=== PATIENT | female | born 1940 | race Caucasian/White ===

== ENCOUNTER 2016-10-01 10:10 | Emergency (ER) | payer MEDICARE ==
[~2016-10-01] VITALS: Ht 172.7 cm; Wt 72.7 kg
[~2016-10-01 10:10] MED LIST: BECL8.7A6 IH; COMBIVENTA INH; ERGO400C PO; ESTR0.5T PO; HYDR-656 PO; MONT10TA23 PO; RAMI2.5C PO; TRIA1TAB2 PO; glucosamine
[2016-10-01 10:24] VITALS: BP 140/63; PULSE 84; RESP 18; O2SAT 100
--- NOTE | 2016-10-01 10:30 | ED.REPORT ---
HPI-Trauma Minor / Fall Date of Service Oct 01, 2016 ED Provider: Ji Moon MD The patient is a 76 year old female who was brought to the emergency department by EMS for right hip/leg pain that began earlier this morning. The patient fell off of a 2 foot high stool and twisted her right leg, causing pain to her right hip and upper thigh. She has been able to ambulate since onset. She denies any other injuries or trauma. She did not hit her head or lose consciousness. She denies neck pain, chest pain, abdominal pain or back pain. She has not had similar symptoms in the past. Nursing Notes Stated Complaint: LEFT HIP/LEG PAIN,GROUND LEVEL FALL Chief Complaint: Multiple Trauma/Fall Nursing Notes Reviewed: Yes Allergies: Coded Allergies: NSAIDS (Non-Steroidal Anti-Inflamma (Verified Allergy, Severe, Anaphylaxis , 10/01/16) oxycodone (Verified Allergy, Intermediate, Itching, 10/01/16) Sulfa (Sulfonamide Antibiotics) (Verified Allergy, Unknown, 10/01/16) aspirin (Verified Allergy, Unknown, 10/01/16) ibuprofen (Verified Allergy, Unknown, 10/01/16) Scheduled ([glucosamine]) DAILY Beclomethasone Dipropionate (Qvar) 8.7 Gm Aer.w.adap 8.7 GM IH BID Cholecalciferol (Vitamin D3) (Vitamin D) 400 Unit Capsule 400 UNIT PO BID Estradiol (Estradiol) 0.5 Mg Tablet 0.5 MG PO 2D Montelukast (Montelukast) 10 Mg Tablet 10 MG PO HS Ramipril (Ramipril) 2.5 Mg Capsule 2.5 MG PO DAILY Triamterene/Hydrochlorothiazid (Maxzide 37.5 mg-25 mg Tablet) 1 Each Tablet 1 TAB PO AM Triamterene/Hydrochlorothiazid (Maxzide 37.5 mg-25 mg Tablet) 1 Each Tablet 0.5 EACH PO HS hydrOXYzine Hcl (HydrOXYzine Hcl) 25 Mg Tablet 25 MG PO HS Scheduled PRN Albuterol/Ipratropium (Combivent Inhaler) 14.7 Gm Aero 1-2 PUFFS INH PRN PRN PRN For Shortness of Breath General Time Seen by MD: 10:28 Chief Complaint Fall, Extremity pain Hx Obtained From: Patient, Other family..., EMS Arrived By: Ambulance Onset Occurred: 1 - 4 hours ago Symptom Duration: Since onset Caused by: Fall from height... 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 Cardiovascular: Denies: Chest pain GI: Denies: Abdominal pain Physical Exam Initial Vital Signs Vital Signs (First) Date Time Temp Pulse Resp B/P Pulse Ox O2 Delivery O2 Flow Rate FiO2 10/01/16 10:24 36.6 84 18 140/63 100 Room Air Initial VS: Reviewed Head / Eyes: Atraumatic, Normocephalic, PERRL ENT: Mucous membranes moist, Conjunctiva normal, No scleral icterus Respiratory: Breath sounds normal, Clear to auscultation, No respiratory distress Cardiovascular: Regular rate & rhythm, Heart sounds normal, Intact distal pulses Abdomen / GI: Soft, Non-tender, No guarding, No rebound, No distention Lymphatic: No lymphadenopathy Extremities: Vascular intact, Neuro intact Skin: Warm, Dry, No cyanosis Neurologic: Alert, Oriented, Nonfocal Psychiatric: Mood/affect normal, Behavior normal, Normal thought content General/Constitutional: Awake, Alert, No acute distress Neck: Atraumatic, Supple, Full range of motion, No swelling, Non-tender, No midline vertebral tend Lower Extremity / Pelvis / MS: Neurologic intact, Vascular intact, Gait NL, Pelvis stable She has pain posterior and inferior to the greater trochanter on the right. She is able to ambulate Interpretation & Diagnostics X-Ray Interpretation Xray Interpretation: IMPRESSION: No fracture or dislocation. If clinical symptoms persist or clinical suspicion for pathology is high, a repeat examination or advanced imaging such as CT or MRI is suggested for further evaluation. Dictated by: Alisia Miguel M.D. on 10/01/2016 at 11:13 X-Ray Ordered: Femur right Interpretation / Wet Read by: Interpret - Radiologist Re-Eval/Medical Decision Source of Hx: Old records, EMS, Family Re-Evaluation/Progress : Time of Eval: 11:46 Re-Evaluation/Progress Note: Discussed x-ray findings, diagnosis, and plan for discharge. All questions were addressed. Counseled Regarding: Diagnosis, Need for follow-up, When/why to return to ED Discharge & Departure Impression: Primary Impression: Fall Encounter type: initial encounter Qualified Code: W19.XXXA - Unspecified fall, initial encounter Additional Impression: Contusion of right hip and thigh Encounter type: initial encounter Qualified Code: S70.01XA - Contusion of right hip, initial encounter Disposition: Home Discharge Condition All VS Reviewed: Yes Condition: Stable Patient Instructions: Contusions in Adults (ED), Fall Prevention for Older Adults (GEN) Additional Instructions: Thank you for entrusting us with your care today. Your x-ray today is reassuring , there is no evidence of any fractures. Use the walker and pain medication as needed over the next 5 days. If your pain is not improving you will need to followup with a primary care provider. You may need to have the area re-imaged. Return to the emergency department if you develop increased pain, numbness, tingling, weakness, or any other new or concerning symptoms. Tylenol 1000 mg every 6 hours and tramadol as needed for more severe pain. Referrals: Rosmery Mcneil MD Attestation Portions of this note were transcribed by Tejal Olivas. I, Dr. Moon personally performed the history, physical exam and medical decision-making; I reviewed and confirmed the accuracy of the information in the transcribed note. Signed by:Rosaline Mustafa, 10/01/2016and 1158. copies to: Rosmery Mcneil MD, Kirk H MD Oct 01, 2016 10:30 Tejal Olivas Oct 01, 2016 10:47
--- NOTE | 2016-10-01 11:17 | DRSVH ---
PROCEDURE: X-RAY RIGHT FEMUR, TWO VIEWS ([id number]) INDICATIONS: trauma TECHNIQUE: 2 views of the femur were acquired. COMPARISON: None. FINDINGS: Bones: No fractures or dislocations. No suspicious bony lesions. Soft tissues: No suspicious soft tissue calcifications or masses. IMPRESSION: No fracture or dislocation. If clinical symptoms persist or clinical suspicion for patho logy is high, a repeat examination or advanced imaging such as CT or MRI is suggested for further caryl luation. Dictated by: Alisia Miguel M.D. on 10/01/2016 at 11:13 Approved by: Alisia Miguel M.D. on 10/01/2016 at 11:15
[2016-10-01] MEDS ORDERED: TRAM50TA2 PO (12:02)
[2016-10-01 12:16] VITALS: BP 137/71; PULSE 81; RESP 16; O2SAT 99
== END 2016-10-01 12:17 | disposition home or self-care (01) ==
LOC: SED 10:10 → EDBD 10:10 → SED 12:17
DX: S70.01XA Contusion of right hip, initial encounter (principal); S70.11XA Contusion of right thigh, initial encounter; W08.XXXA Fall from other furniture, initial encounter; Y93.89 Activity, other specified; Y92.89 Other specified places as the place of occurrence of the external cause; Y99.8 Other external cause status; I42.9 Cardiomyopathy, unspecified; Z88.2 Allergy status to sulfonamides; Z88.5 Allergy status to narcotic agent; Z88.8 Allergy status to other drugs, medicaments and biological substances